=== PATIENT | female | born 1950 | race Asian ===

== ENCOUNTER 2023-09-06 08:53 | Emergency (ER) | payer BC, OTHER ==
[~2023-09-06] VITALS: Ht 149.9 cm; Wt 51.3 kg
[2023-09-06 09:04] VITALS: BP_SYST 123; PULSE 85; RESP 20; TEMP 98.3; O2SAT 98
[2023-09-06] MEDS: KETOROLAC TROMETHAMINE 30 MG VIAL IM ONE (10:03)
[2023-09-06] MEDS: ACETAMINOPHEN 500 MG TABLET PO ONE (10:04)
[2023-09-06] MEDS ORDERED: [UNRECOGNIZED DRUG - CODE] PO (11:13)
[2023-09-06 11:24] VITALS: BP_SYST 104; PULSE 81; RESP 18; TEMP 97.6; O2SAT 95
== END 2023-09-06 11:24 | disposition home or self-care (01) ==
LOC: SED 08:53
DX: M71.21 Synovial cyst of popliteal space [Baker], right knee (principal); M17.11 Unilateral primary osteoarthritis, right knee; M79.651 Pain in right thigh; Z79.899 Other long term (current) drug therapy
CPT/HCPCS: 99285; 93971; 73564; 96372; J1885